=== PATIENT | female | born 1965 | race Asian ===

== ENCOUNTER 2016-06-19 00:34 | Emergency (ER) | payer BC ==
[~2016-06-19] VITALS: Ht 162.6 cm; Wt 73.5 kg
== END 2016-06-19 02:55 | disposition home or self-care (01) ==
LOC: ED 00:34
DX: M10.9 Gout, unspecified (principal)
CPT/HCPCS: 36415; 84550; 96372; 99283; J1885; J2930

== ENCOUNTER 2016-06-22 10:58 | Outpatient (CLI) | payer BC | END 2016-06-22 11:00 | LOC: MAMMO 10:58 | DX: Z12.31 Encounter for screening mammogram for malignant neoplasm of breast (principal) | CPT/HCPCS: G0202-TC ==

== ENCOUNTER 2018-03-01 08:24 | Outpatient (CLI) | payer BC ==
[2018-03-01 08:38] LABS: PLATELET COUNT 352 K/uL (152-353)
[2018-03-01 09:02] LABS: POTASSIUM 3.9 mmol/L (3.6-5.2)
== END 2018-03-01 21:29 | disposition home or self-care (01) ==
LOC: LABW 08:24
PROVIDERS: Physician Assistant
DX: N18.3 Chronic kidney disease, stage 3 (moderate) (principal); E87.70 Fluid overload, unspecified
CPT/HCPCS: 36415; 80053; 80061; 82306; 83036; 84439; 84443; 85027